=== PATIENT | female | born 1980 | race Caucasian/White ===

== ENCOUNTER → 2019-05-15 | Outpatient (CLI) | payer BC ==
[2005-06-18 11:12] VITALS: TEMP 98
== END ==
LOC: COL.RAD 05-09 10:30
DX: R20.0 Anesthesia of skin (principal)
CPT/HCPCS: A9585

== ENCOUNTER → 2022-03-12 | Outpatient (CLI) | payer OTHER ==
[2005-06-18 11:12] VITALS: TEMP 98
== END ==
LOC: MC.RAD 11:20
DX: Z12.31 Encounter for screening mammogram for malignant neoplasm of breast (principal); N63.10 Unspecified lump in the right breast, unspecified quadrant

== ENCOUNTER → 2022-03-19 | Outpatient (CLI) | payer OTHER ==
[2005-06-18 11:12] VITALS: TEMP 98
== END ==
LOC: MC.RAD 09:59
DX: N63.15 Unspecified lump in the right breast, overlapping quadrants (principal)

== ENCOUNTER → 2022-04-21 | Outpatient (CLI) | payer OTHER ==
[2005-06-18 11:12] VITALS: TEMP 98
== END ==
LOC: MC.RAD 04-13 10:00
DX: N63.10 Unspecified lump in the right breast, unspecified quadrant (principal)